=== PATIENT | female | born 1950 | race Caucasian/White ===

== ENCOUNTER 2018-06-01 12:24 | Outpatient (CLI) | payer MEDICARE, OTHER | END 2018-06-01 12:25 | disposition home or self-care (01) | LOC: BICMAMMO 12:24 | PROVIDERS: ATTEND Obstetrics & Gynecology | DX: Z12.31 Encounter for screening mammogram for malignant neoplasm of breast (principal) | CPT/HCPCS: 77063; 77067 ==

== ENCOUNTER 2019-01-02 11:26 | Outpatient (CLI) | payer MEDICARE, OTHER ==
--- NOTE | 2019-01-02 12:45 | RAD ---
THREE VIEWS LUMBAR SPINE: Date: 01-02-19 History: Low back pain. Comparison: None available. FINDINGS: There are five non-rib lumbar type vertebral bodies. The vertebral body heights are within normal flynn its. Minimal scattered osteophytes are seen at multiple levels. No fracture or subluxation is seen in volving the lumbar spine. Facet degenerative changes are seen in the lower lumbar spine. Vascular jean marie cifications are noted in the abdominal aorta. IMPRESSION: Mild degenerative changes in the lumbar spine without evidence of fracture or subluxation. POS: [facility]
== END 2019-01-02 11:27 | disposition home or self-care (01) ==
LOC: BICRAD 11:26
PROVIDERS: ATTEND Specialist
DX: M54.5 Low back pain (principal); M47.816 Spondylosis without myelopathy or radiculopathy, lumbar region
CPT/HCPCS: 72100

== ENCOUNTER 2023-03-10 08:49 | Outpatient (CLI) | payer MEDICARE, OTHER | END 2023-03-10 08:50 | disposition home or self-care (01) | LOC: BICMAMMO 08:49 | PROVIDERS: ATTEND Specialist | DX: Z12.31 Encounter for screening mammogram for malignant neoplasm of breast (principal) | CPT/HCPCS: 77063; 77067 ==

== ENCOUNTER 2024-03-18 08:55 | Outpatient (CLI) | payer MEDICARE, OTHER | END 2024-03-18 08:56 | disposition home or self-care (01) | LOC: BICMAMMO 08:55 | PROVIDERS: ATTEND Specialist | DX: Z12.31 Encounter for screening mammogram for malignant neoplasm of breast (principal) | CPT/HCPCS: 77063; 77067 ==